=== PATIENT | male | born 1975 | race Hispanic/Latino ===

== ENCOUNTER 2024-02-23 11:59 | Emergency (ER) | payer SELFPAY ==
[2024-02-23 12:00] VITALS: BP 147/96
[2024-02-23 12:06] VITALS: BMI 26.8
[2024-02-23 12:18] LABS: % Basophils 1.3 % (0-2); % Eosinophils 7.3 % (0-6); % Immature Granulocytes 0.3 % (0-0.5); % Lymphocytes 35.4 % (20.5-51.1); % Monocytes 6.6 % (1.7-9.3); % Neutrophils 49.1 % (42.2-75.2); Absolute Basophils 0.1 10^3/uL (0-0.2); Absolute Eosinophils 0.5 10^3/uL (0-0.7); Absolute Lymphocytes 2.5 10^3/uL (1.2-3.4); Absolute Monocytes 0.5 10^3/uL (0.1-0.6); Absolute Neutrophils 3.4 10^3/uL (1.4-6.5); Hematocrit 40.7 % (39.0-52.0); Mean Corp Hgb Conc. 34.4 g/dL (33.0-37.0); Mean Corpuscular Hgb 28.7 pg (27.0-31.0); Mean Corpuscular Volume 83.4 fL (80.0-94.0); Mean Platelet Volume 9.9 fL (7.4-10.4); Nucleated Red Blood Cells % 0 % (-); Platelet Count 259 10^3/uL (130-400); Red Blood Cell Count 4.88 10^6/uL (4.70-6.10); Red Cell Dist. Width 12.9 % (11.5-14.5); White Blood Cell Count 6.9 10^3/uL (4.8-10.8)
[2024-02-23 12:26] LABS: ALT (SGPT) 23 U/L (0-50); AST (SGOT) 26 U/L (17-59); Albumin 4.4 g/dl (3.5-5.0); Alkaline Phosphatase 106 U/L (38-126); Blood Urea Nitrogen 10 mg/dl (9-20); Calcium 8.9 mg/dl (8.4-10.2); Carbon Dioxide 21 mmol/L (22-30); Chloride 107 mmol/L (98-107); Estimated Creatinine Clearance > 125 ml/min; Glucose 120 mg/dl (70-99); Potassium 4.1 mmol/L (3.5-5.1); Sodium 142 mmol/L (135-145); Total Bilirubin 0.4 mg/dl (0.2-1.3); Total Protein 7.1 g/dl (6.3-8.2); eGFR > 60.00
[2024-02-23 12:35] LABS: APTT 28.5 Sec (23.4-35.0); INR 1.05; PT 13.5 Sec (11.4-14.6)
[2024-02-23 12:37] LABS: Troponin I < 0.012 ng/ml
--- NOTE | 2024-02-23 12:50 | ED.GENMED ---
History of Present Illness
General
Chief Complaint: Chest Pain
Source: patient
Exam Limitations: none
Time Seen by Provider: 02/23/24 12:21
Nursing documentation reviewed up to this point in time: agreed with
History of Present Illness
History of Present Illness:
49-year-old male presenting to the emergency department today from his worksite with concerns of a left-sided chest discomfort scribed as sharp stabbing without significant radiation mild associated shortness of breath patient claims that he had an
episode where he passed out during this prior to arrival for a brief moment this was witnessed by coworkers. At this point symptoms are improving after receiving nitro and aspirin en route via EMS. Does have a history of heart disease he claims
that was treated at [facility] but he does not have any doctors here. Denies any heart intervention in the past.
Review of Systems
Review of Systems
Allergies reviewed?: Yes
All Other Systems: ROS reviewed and negative except as documented in HPI and ROS
Phy Exam
Physical Exam
Physical Exam:
GENERAL: Alert , in no apparent distress
EYE: pupils equal and reactive
NECK: Supple, no significant adenopathy.
ENT: o/p clr, mmm.
CARDIAC: Regular rate and rhythm .
LUNGS: Clear breath sounds bilaterally, no acute respiratory distress, no wheezes/rales/rhonchi
ABDOMEN: Soft, without focal tenderness, no r/g, no cvat
NEUROLOGICAL: Alert and oriented, no focal neuro deficits
SKIN: Warm and dry, skin intact.
MUSCULOSKELETAL: No edema, well perfused.
PSYCH: Normal and appropriate interaction.
Scores
Heart Score for Chest Pain Patients
STEMI patient?: No
History: Moderately Suspicious
ECG: Nonspecific Repolarization
Age: >45 - <65 years
Risk Factors: >/= 3 Risk Factors or History of CAD
Troponin: </= Normal Limit
Heart Score for Chest Pain Patients: 5
Heart Score Risk: 20.3% MACE over next 6 weeks
Course
Orders/Labs/Results
Orders:
Orders
02/23/24
Electrocardiogram (*1) Stat
Comment: DONE EMR
02/23/24 12:02
CXR2 [CR Chest - 2 Views ] Urgent
Comment:
Reason For Exam: chest pain/SOB
02/23/24 12:03
Complete Blood Count/With Diff Urgent
Comprehensive Metabolic Panel Urgent
D-Dimer Urgent
NT-proBNP Urgent
PTT Urgent
Prothrombin Time Urgent
Troponin I Urgent
02/23/24 12:49
Cardiac Monitoring- Treatment ONCE
02/23/24 13:27
Add On- LAB Urgent
Tests Added?: BNP, D-dimer
02/23/24 13:58
EKG [Electrocardiogram (*1)] Urgent
Reason for Study: Chest Pain
EKG- Treatment ONCE
02/23/24 14:33
Echo 2D MMode Color/Doppler [Echo 2D MMode Color/Doppler] Routine
Reason for Study: chest pain
Cardiology Consult: Jamel Otto
02/23/24 14:45
Troponin I Urgent
Abnormal Lab Results
02/23/24
12:03
Eosinophils % 7.3 H %
(0-6)
Carbon Dioxide 21 L mmol/L
(22-30)
Creatinine 0.6 L mg/dL
(0.7-1.3)
Glucose 120 H mg/dl
(70-99)
02/23/24 12:03
02/23/24 12:03
Vital Signs
Initial and Last Documented VS:
Initial Vital Signs
Pulse Resp BP Pulse Ox
75 16 147/96 96
02/23/24 12:00 02/23/24 12:00 02/23/24 12:00 02/23/24 12:00
Last Documented Vital Signs
Pulse Resp BP Pulse Ox
63 24 166/98 97
02/23/24 14:11 02/23/24 14:11 02/23/24 14:11 02/23/24 14:11
MDM/Problems Addressed
MDM/Problems Addressed:
49-year-old male presenting to the emergency department today with concerns of a central and left side chest sharp discomfort associated shortness of breath associated syncopal episode. Feeling better after EMS gave aspirin and nitro. He claims
that he does have a known history of heart disease has been taking nitro after he was seen for similar symptoms in [facility]. Does have frequent symptoms that are similar daily this has been progressing recently. Here patient eventually
asymptomatic when reassessed. Labs were unremarkable troponin negative BNP normal D-dimer negative. Chest x-ray showed some increased pulmonary vascularity. Otherwise cardiology was consulted about the case saw the patient got an echo. Second
troponin negative EKG repeated unchanged. She is to be low risk acutely at this time cardiology recommending further assessment as an outpatient. Patient appears stable here and is asymptomatic he was given return precautions otherwise stable for
outpatient management.
*Critical Care Note
Total Time (30-74mins, 75-104mins- exclusive of procedures): Not Applicable
ED Attending Note
-
Portions of this chart may have been created with voice recognition software.� Occasional wrong word or��sound alike� substitutions may have occurred due to the inherent limitations of voice recognition software.
Discharge Plan
Departure
Patient Disposition: Home (Routine Discharge)
Date of Disposition: 02/23/24
Time of Disposition: 16:37
Patient with high blood pressure during this ER visit?: No
Condition: Good
Covid-19: Not Applicable
Discharge Problem:
Chest pain
Instructions: Chest pain
Prescriptions:
New
aspirin 81 mg capsule
81 mg PO DAILY 14 Days Qty: 14 0RF
metoprolol succinate 25 mg capsule,sprinkle,ER 24hr
25 mg PO DAILY 14 Days Qty: 14 0RF
Referrals:
Jamel Otto, [Active] - Follow up in 5-7 days
NONE,* [Family Provider] -
Activity Restrictions/Additional Instructions:
You came to the emergency department today for concerns of chest discomfort. Here you had a reassuring assessment and you were assessed by cardiology. They would like to see you in the office over the next week or 2 for further testing. Return
for any worsening, new or concerning symptoms. In the meantime please start the prescribed occasions once daily.
Interventions
Interventions:
*Risk Screen - Suicide Last Done: 02/23/24 12:06
*General Assessment Last Done: 02/23/24 12:06
*Neglect/Abuse Screening Last Done: 02/23/24 12:06
ED- Fall Risk Assessment Last Done: 02/23/24 12:06
*ED COVID-19 Vaccine History Last Done: 02/23/24 12:06
ED- Cardiac Assessment Last Done: 02/23/24 12:06
Discharge Date and Time
Print Language: MALTESE
[2024-02-23 13:00] VITALS: BP 129/98
[2024-02-23 13:15] VITALS: BP 129/98
--- NOTE | 2024-02-23 13:29 | EDRN ---
the pt is resting in stretcher in the lowest position, side rails up x2, call youngblood within reach, HOB elevated, no s/s of distress, no c/o chest pain or SOB currently, VS WNL, ST elevation noted, this RN notified the provider Jc EDWARD, will
continue to monitor the pt closely
[2024-02-23 13:58] LABS: D-Dimer 0.22 ug/mlFEU (0.00-0.50)
--- NOTE | 2024-02-23 14:06 | EDRN ---
second EKG placed per Ed Daljit EDWARD orders, EKG being performed currently
[2024-02-23 14:11] VITALS: BP 166/98
[2024-02-23 14:27] LABS: NT-proBNP < 20.0 pg/ml
[2024-02-23 15:00] VITALS: BP 178/104
[2024-02-23 15:13] LABS: Troponin I < 0.012 ng/ml
--- NOTE | 2024-02-23 15:14 | CON.CAR ---
Addendum entered and electronically signed by Jamel Otto DO 02/24/24 08:15:
I saw and examined the patient.
The [employer]'s note was reviewed and I agree with the note.
Comment:
Plan:
Possible syncope with atypical chest pain. He has had chest pain for months.
Troponins negative X 2. Urgent echo unremarkable with preserved EF and no significant valve disease.
EKG without acute changes
Discussed resuming ASA 81 mg daily and beta maci as he had taken these in [facility]. He was mildly hypertensive. Start Toprol XL 25 mg daily.
Discussed getting a stress echo and 7 day monitor to eval for arrhythmia, ectopy or heart block.Tele was unremarkable during his ER stay
Check outpt carotid u/s.
Outpt follow up with cardiology in next 6 weeks.
Discussed with friend who translated.
He lives in [facility] and may follow up closer to home.
Discussed with ER. They were appreciative.
Original Note:
Consultation
Consultation Request
Date/Time Consultation Requested: 02/23/24
Date/Time Consultation Performed: 02/23/24 1430
Performing Provider: JACOB Dickens for Dr Fam DO
Reason for Consultation: chest pain
Medical History
-
Chief Complaint: Chest pain
History of Present Illness:
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 He is accompanied by a friend who translates for him and helps with the HPI. They were raking a property when the
friend noticed the patient sitting on the ground. Patient then fell over on the ground. His coworker tried to sit him up but believes he was not responsive for about 3 minutes. Denies seizure-like activity. Upon awakening the pt complained of 6
out of 10 sharp chest pain without associated shortness of breath, diaphoresis, nausea. 911 was called. He received 1 sublingual nitroglycerin in the ambulance.
The patient reports he gets intermittent chest pain daily which can occur with exertion or at rest. He has had this pain for months. It is always localized to the left lower chest with no radiation. He reports seeing a physician in his home
country of [facility] and told that he has a problem with his heart, but does not know a specific diagnosis. He has been on aspirin and his friend believes acebutolol but has been off his meds for 2 to 3 weeks.
In addition to the sharp chest pain, he also reports dyspnea when walking or running. He denies palpitations, lightheadedness, or other episodes of syncope prior to today. It was not overly warm outside when they were working. He denies edema,
PND, orthopnea.
He denies history of diabetes, heart failure, CVA, arrhythmias, CVA, TIA, PAD.
Past Medical History
Past Medical History: Other (as above)
Past Surgical History: Other (hernia surgery 6 years ago)
Social History
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
Family History
Family History: Reviewed & Not Pertinent
Allergies / Home Medications
�Medication �Instructions �Recorded �Confirmed �Type
No Meds [No Current Medications] 02/23/24 02/23/24 History
Review of Systems
-
History Source: Patient and Other (friend)
All other systems: Negative unless noted
Physical Exam
Vital Signs
Pulse Resp BP Pulse Ox
63 24 166/98 97
02/23/24 14:11 02/23/24 14:11 02/23/24 14:11 02/23/24 14:11
Lab Results
02/23/24 12:03
02/23/24 12:03
Troponin I < 0.012 ng/ml 02/23/24 14:45
[id number] Pept Cancelled 02/23/24 12:42
GEN: No distress, awake, Ox3
HEENT: supple, MMM, R carotid bruit
LUNGS: CTA, no wheezes/rales
CV: Reg, S1/S2,no murmur
ABD: soft, BS+, NT/ND
EXT: No edema
NEURO: Gross non-focal
SKIN: No rash
Impression / Plan
-
Primary CARE physician: None
E Commerce Analyst in [facility], has not seen in at least 2 years
Impression:
Sharp chest pain
Syncope
History of 'heart problem', specific diagnosis unknown. Patient had been on aspirin and a beta-maci
hernia surgery
troponin <0.012 x 2 02/23/24
EKG 1200:NSR, can't r/o ant/septal MN (Q waves V1-V3)
EKG 1400:NSR, can't r/o ant/septal MN (Q waves V1-V3)
Chest pain: troponin negative x 2 in ER today. EKG with ant/septal Q waves - positional vs old MN - getting echo now to assess for wall motion abnormalities, other structural abnormalites as cause of chest pain
-if echo unremarkable, check outpt stress echo and one week holter monitor given syncope
-resume ASA 81 mg daily and start Toprol 25 mg daily
-BNP <20
-Carotid bruit on exam, would check carotid ultrasound given syncope. Can be done as outpt.
Data Reviewed
-
EKG: Tracing Personally Visualized and interpreted
Labs: Labs Reviewed by me
[2024-02-23 16:45] VITALS: BP 157/97
== END 2024-02-23 16:50 | disposition home or self-care (01) ==
LOC: EMR 11:59
PROVIDERS: Physician Assistant; EMERGENCY PHYSICIAN Emergency Medicine; OTHER PHYSICIAN Nuclear Medicine Nuclear Cardiology
DX: R07.89 Other chest pain (principal); R06.02 Shortness of breath; I10 Essential (primary) hypertension; I25.10 Atherosclerotic heart disease of native coronary artery without angina pectoris
CPT/HCPCS: 99283; 71046; 80053; 83880; 84484; 85025; 85379; 85610; 85730; 93005; 93306